=== PATIENT | male | born 1990 | race Caucasian/White ===

== ENCOUNTER 2016-10-31 08:18 | Emergency (ER) | payer OTHER ==
[~2016-10-31] VITALS: Ht 182.9 cm; Wt 97.5 kg
[~2016-10-31 08:18] MED LIST: EPIPEN 2-PAK1 MG/ML IM; PREDNISONE10 MG PO
--- NOTE | 2016-10-31 09:22 | ED CARDIAC/CP/PALPITATIONS ---
History of Present Illness General Chief Complaint: Chest Pain Stated Complaint: CHEST PAIN ON AND OFF X 2 DAYS Source: patient Exam Limitations: no limitations Vital Signs & Intake/Output Vital Signs & Intake/Output Vital Signs Date Time Temp Pulse Resp B/P Pulse O2 O2 Flow FiO2 Ox Delivery Rate 10/31 1015 97.4 88 20 140/80 98 Room Air 10/31 0828 97.0 96 18 157/88 98 Room Air Allergies Coded Allergies: tree nut (Severe, swelling/hives 10/31/16) Reconcile Medications Meloxicam (Mobic) 15 MG TABLET 1 TAB PO DAILY PRN PAIN/INFLAMMATION Pantoprazole Sodium (Protonix) 40 MG TABLET. 1 TAB PO DAILY gerd Triage Note: 25 YEAR OLD MALE STATES THAT FOR THE PAST 4 DAYS HE HAS BEEN GETTING AN INTERMITTANT PAIN IN HIS CHEST, PT CAN NOT PIN POINT PAIN, STATES THAT IT MOVES AROUND . PAIN AT THIS TIME IS MID STERNUM, BUT PRIOR TO THAT IT WAS IN R SIDE CHEST, DENIES SOB. PT CONCERNED DUE TO HIS FATHER HAD HEART ATTACK A FEW MONTHS AGO AND HE DID RESEARCH ON HIS FAMILY HISTORY AND A LOT OF PEOPLE HAVE FROM HEART ATTACK Triage Nurses Notes Reviewed? yes HPI: Patient is a 25-year-old male presents complaining of chest pain for the past 3- 4 days. Chest pain varies in characteristic, intensity, location. Patient reports that he has been at times pinching, at times a heartburn sensation and at other times it tightness sensation. Pain is currently a tightness to the right side of the chest is currently moderate. Other times patient has had left -sided chest discomfort. The length of time of the pain varies. Patient's father who is in his late 50s recently had a myocardial infarction which concerned the patient and prompted him to come in for evaluation. Patient has been taking Mucinex with no improvement. No significant cough but when the patient coughs he reports that there is a green sputum production. Denies dyspnea, lower extremity swelling, orthopnea. Past History Travel History Traveled to [place] past 21 day No Medical History Any Pertinent Medical History? see below for history Neurological: NONE EENT: NONE Cardiovascular: hyperlipidemia Respiratory: NONE Gastrointestinal: NONE Hepatic: NONE Renal: NONE Musculoskeletal: NONE Psychiatric: NONE Endocrine: NONE Blood Disorders: NONE Cancer(s): NONE [employer]/Reproductive: NONE Surgical History Surgical History: non-contributory Psychosocial History What is your primary language Maltese Tobacco Use: Quit <30 days ago ETOH Use: occasional use Illicit Drug Use: marijuana (daily) Family History Hx Contributory? Yes (CAD, father in his 50's) Review of Systems Review of Systems Constitutional: Denies: chills, fever. EENTM: Reports: no symptoms. Respiratory: Reports: cough (minimal), sputum production (occasional). Cardiovascular: Reports: see HPI. Denies: edema, syncope. GI: Denies: abdominal pain. Genitourinary: Reports: no symptoms. Musculoskeletal: Denies: back pain. Skin: Reports: no symptoms. Neurological/Psychological: Reports: no symptoms. Hematologic/Endocrine: Reports: no symptoms. Immunologic/Allergic: Reports: no symptoms. Physical Exam Physical Exam General Appearance: well developed/nourished, alert, awake Head: atraumatic, normal appearance Eyes: Bilateral: normal appearance, PERRL, EOMI. Ears, Nose, Throat: normal pharynx, normal ENT inspection, hearing grossly normal Neck: normal inspection, supple, full range of motion Respiratory: normal breath sounds, chest non-tender, no respiratory distress, lungs clear Cardiovascular: regular rate/rhythm, NO MURMUR, RUBS, GALLOPS Peripheral Pulses: 2+ radial (R), 2+ radial (L), 2+ dorsalis pedis (R), 2+ dorsalis pedis (L) Gastrointestinal: soft, non-tender Back: normal inspection, normal range of motion Extremities: normal inspection, normal capillary refill, normal range of motion, no edema, NO CALF TENDERNESS Neurologic/Psych: no motor/sensory deficits, awake, alert, oriented x 3, normal gait, normal mood/affect Skin: intact, normal color, warm/dry Lymphatic: no anterior cervical les Core Measures ACS in differential dx? Yes ASA ordered for poss ACS? No-ACS ruled out Severe Sepsis Present: No Septic Shock Present: No Progress Differential Diagnosis: AMI, aortic dissection, atrial fibrillation, costochondritis, musculoskeletal pain, pericarditis, pneumonia, pneumothorax, pulmonary embolism, PUD/GERD, unstable angina, V-fib/V-Tach Plan of Care: Orders Procedure Date/time Status EKG 10/31 0820 Active Low risk WELLS criteria, PERC negative. PE ruled out. 1010: Results of chest x-ray and EKG discussed with patient. Pain is very atypical, pulses equal in all 4 extremities, EKG unremarkable, chest x-ray unremarkable. Patient appears stable for discharge and follow-up with his primary care provider. (PHUONG ROSAS,AIDE) Diagnostic Imaging: Viewed by Me: Radiology Read. Discussed w/RAD: Radiology Read. CXR Impression: PATIENT: AIDE VELEZ PRESENT AGE: 25 PATIENT ACCOUNT NO: [id number] : 88 LOCATION: [facility] ORDERING PHYSICIAN: AIDE ROSAS SERVICE DATE: 10/31/16 EXAM TYPE: RAD - XRY-CHEST XRAY, PA AND LATERAL EXAMINATION: XR CHEST CLINICAL INFORMATION: Chest pain COMPARISON: None. TECHNIQUE: PA and lateral views of the chest were obtained. FINDINGS: The cardiomediastinal silhouette is within normal limits. No focal consolidation, pleural effusion or pneumothorax. Osseous structures are intact. IMPRESSION: No radiographic evidence of acute pulmonary disease. DICTATED BY: MATT NUÑEZ DO DATE/TIME DICTATED:10/31/16947 JORDAN WORKER:QUINTIN DATE/TIME TRANSCRIBED:10/31/16947 CONFIDENTIAL, DO NOT COPY WITHOUT APPROPRIATE AUTHORIZATION. <Electronically signed in Other Vendor System> SIGNED BY: MATT NUÑEZ DO 10/31/16951 Initial ED EKG: normal sinus rhythm 90 bpm normal axis, normal intervals, no acute ST/T-wave abnormalities Departure Departure Time of Disposition: 1011 Disposition: HOME OR SELF CARE Condition: Stable Clinical Impression Primary Impression: Chest pain Qualifiers: Chest pain type: unspecified Qualified Code: R07.9 - Chest pain, unspecified Referrals: CUCO SCHNEIDER MD (PCP/Family) Additional Instructions: Follow-up with your primary doctor within 1-2 weeks for further evaluation. Call today for appointment. Return to the emergency department if worsening of symptoms. Departure Forms: Customer Survey General Discharge Information Prescriptions: Current Visit Scripts Meloxicam (Mobic) 1 TAB PO DAILY PRN PAIN/INFLAMMATION #10 TAB Pantoprazole Sodium (Protonix) 1 TAB PO DAILY #14 TAB Critical Care Note Critical Care Note Critical Care Time: non-applicable
--- NOTE | 2016-10-31 09:52 | RADIOLOGY REPORT ---
EXAMINATION: XR CHEST CLINICAL INFORMATION: Chest pain COMPARISON: None. TECHNIQUE: PA and lateral views of the chest were obtained. FINDINGS: The cardiomediastinal silhouette is within normal limits. No focal consolidation, pleural effusion or pneumothorax. Osseous structures are intact. IMPRESSION: No radiographic evidence of acute pulmonary disease.
[2016-10-31] MEDS ORDERED: MOBIC15 M1 PO (10:13)
[2016-10-31] MEDS ORDERED: PROTONIX40 M3 PO (10:13)
[2016-10-31 10:15] VITALS: BP 140/80
== END 2016-10-31 10:16 ==
LOC: ERH 08:18
DX: R07.9 Chest pain, unspecified (principal)
CPT/HCPCS: 93005; 93010